=== PATIENT | female | born 2000 | race Hispanic/Latino ===

== ENCOUNTER 2022-02-06 11:18 | Emergency (ER) | payer OTHER | END 2022-02-06 14:05 | disposition home or self-care (01) | LOC: CSHERS 11:18 | DX: O9A.212 Injury, poisoning and certain other consequences of external causes complicating pregnancy, second trimester (principal); T14.8XXA Other injury of unspecified body region, initial encounter; Z3A.19 19 weeks gestation of pregnancy; V49.9XXA Car occupant (driver) (passenger) injured in unspecified traffic accident, initial encounter | CPT/HCPCS: 76856; 93976 ==

== ENCOUNTER 2022-04-01 09:39 | Day surgery (SDC) | payer SELFPAY ==
[2022-04-01] MEDS ORDERED: Promethazine HCl 25 MG/ML VIAL IM PRN (10:24)
[2022-04-01] MEDS ORDERED: Acetaminophen 500 MG TAB PO PRN (10:24)
[2022-04-01] MEDS ORDERED: hydrALAZINE 20 MG/ML VIAL SLOW IVP PRN (10:24)
[2022-04-01] MEDS ORDERED: Ondansetron PF 4 MG/2 ML Vial IVP PRN (10:24)
[2022-04-01] MEDS ORDERED: Lactated Ringer's 1,000 ML IV SCH (10:30)
[2022-04-01 10:38] LABS: Bilirubin Neg (Negative); Blood, Urine 10 (Negative); Clarity Cloudy (Clear); Glucose, Urine (Dipstick) Normal (Negative); Ketone, Urine Negative (Negative); Leukocyte 100 (Negative); Nitrite Negative (Negative); Protein, Urine (Dipstick) 30 mg/dl (Neg-Trace); Urobilinogen Normal mg/dL (Less than 2); pH, Urine 6.5 (5.0-9.0)
[2022-04-01 10:51] LABS: Urine Culture Reflex No No
[2022-04-01 10:53] LABS: Bacteria/HPF 1+ HPF (None Seen)
== END 2022-04-01 13:57 | disposition home or self-care (01) ==
LOC: CSHLD/OP 09:39
PROVIDERS: ATTEND Obstetrics & Gynecology
DX: O36.8120 Decreased fetal movements, second trimester, not applicable or unspecified (principal); O99.212 Obesity complicating pregnancy, second trimester; E66.9 Obesity, unspecified; Z67.91 Unspecified blood type, Rh negative; Z3A.27 27 weeks gestation of pregnancy
CPT/HCPCS: 76819; 81001

== ENCOUNTER 2022-05-18 12:21 | Day surgery (SDC) | payer SELFPAY ==
[2022-05-18 13:15] VITALS: BMI 40.6
[2022-05-18] MEDS ORDERED: hydrALAZINE 20 MG/ML VIAL SLOW IVP PRN (14:13)
[2022-05-18 14:39] LABS: Mean Corpuscular HGB CONC 33.9 g/dL (32.0-36.0); Mean Corpuscular Hemoglobin 30.2 pg (27.0-33.0); Mean Corpuscular Volume 88.9 fl (81.6-98.3); Mean Platelet Volume 12.1 fl (7.4-10.4); Platelet Count 292 10x3/uL (150-450); RBC Distribution Width 13.6 % (11.5-14.5); Red Blood Cell (RBC) Count 3.98 10x6/uL (3.90-5.03); White Blood Cell (WBC) Count 8.8 10x3/uL (3.5-10.5)
[2022-05-18 15:51] LABS: ALT (SGPT) 61 U/L (8-55); AST (SGOT) 42 U/L (5-34); Albumin 3.2 g/dL (3.5-5.0); Alkaline Phosphatase 106 U/L (40-110); Anion Gap 11 mmol/L (10-20); BUN (Urea Nitrogen) 9 mg/dL (7.0-18.7); Bilirubin, Total 0.2 mg/dL (0.2-1.2); Calc. Creatinine Clearance 237 mL/min (70-130); Calcium 8.9 mg/dL (7.8-10.44); Carbon Dioxide 23 mmol/L (22-29); Chloride 104 mmol/L (98-107); Estimated GFR 128; Globulin 3.5 g/dL (2.4-3.5); Glucose 76 mg/dL (70-105); Potassium 3.7 mmol/L (3.5-5.1); Protein, Total 6.7 g/dL (6.0-8.3); Sodium 134 mmol/L (136-145)
[2022-05-18 16:22] LABS: Creatinine, Urine 73.69 mg/dL (47-110)
[2022-05-19 01:21] LABS: Hep A IgM S/CO 0.38 S/CO (0-0.79); Hep C Index 0.12 S/CO (0-0.79)
[2022-05-19 01:22] LABS: Hep A IgM AB Non-Reactive (NonReactive); Hep B Surf Ag Non-Reactive S/CO (NonReactive); Hep C IgG Ab Non-Reactive (NonReactive); Hepatitis B Core IgM Abs Non-Reactive (NonReactive)
== END 2022-05-18 18:45 | disposition home or self-care (01) ==
LOC: CSHLD/OP 12:21
PROVIDERS: ATTEND Obstetrics & Gynecology
DX: O99.891 Other specified diseases and conditions complicating pregnancy (principal); R03.0 Elevated blood-pressure reading, without diagnosis of hypertension; O36.8330 Maternal care for abnormalities of the fetal heart rate or rhythm, third trimester, not applicable or unspecified; O24.419 Gestational diabetes mellitus in pregnancy, unspecified control; Z3A.34 34 weeks gestation of pregnancy; Z79.84 Long term (current) use of oral hypoglycemic drugs
CPT/HCPCS: 36415; 80053; 80074; 82570; 84156; 85027; 99283

== ENCOUNTER 2022-06-16 00:02 | Inpatient (IN) | payer MEDICAID, OTHER, SELFPAY ==
[2022-06-16 00:39] VITALS: BMI 37.5
[2022-06-16] MEDS ORDERED: Ondansetron PF 4 MG/2 ML Vial IVP PRN ×2 (01:00→13:42)
[2022-06-16] MEDS ORDERED: Acetaminophen 500 MG TAB PO PRN (01:00)
[2022-06-16] MEDS ORDERED: hydrALAZINE 20 MG/ML VIAL SLOW IVP PRN (01:00)
[2022-06-16] MEDS ORDERED: Lidocaine 1% (PF) 30 ML VIAL SC PRN (01:43)
[2022-06-16] MEDS ORDERED: Diphenoxylate HCl/Atropine Tablet PO PRN (01:43)
[2022-06-16] MEDS ORDERED: Misoprostol 200 MCG TAB PR PRN (01:43)
[2022-06-16] MEDS ORDERED: Carboprost 250 MCG/ML AMP IM PRN (01:43)
[2022-06-16] MEDS ORDERED: Ibuprofen 800 MG TAB PO PRN (01:43)
[2022-06-16] MEDS ORDERED: NS w/ Oxytocin 30 units 500 ML IV SCH ×2 (01:45)
[2022-06-16 02:04] LABS: Hemoglobin 12.6 g/dL (12.0-15.5); Mean Corpuscular HGB CONC 34.9 g/dL (32.0-36.0); Mean Corpuscular Hemoglobin 30.4 pg (27.0-33.0); Mean Platelet Volume 12.9 fl (7.4-10.4); Platelet Count 255 10x3/uL (150-450); RBC Distribution Width 14.3 % (11.5-14.5); Red Blood Cell (RBC) Count 4.15 10x6/uL (3.90-5.03); White Blood Cell (WBC) Count 11.4 10x3/uL (3.5-10.5)
[2022-06-16] MEDS: Lactated Ringer's 1,000 ML IV SCH ×3 (02:04→19:08)
[2022-06-16] MEDS: Misoprostol 100 MCG TAB VAG SCH ×5 (02:04→19:09)
[2022-06-16 02:13] LABS: SARS-CoV-2 NAA Rapid Test Not Detected (NotDetected)
[2022-06-16 02:26] LABS: HBSAg Index 0.14 S/CO (0-0.99); Hep B Surf Ag Non-Reactive S/CO (NonReactive)
[2022-06-16 02:27] LABS: Syphilis Antibody Nonreactive (Nonreactive); Syphilis Antibody Index 0.03 S/CO (<1.00 Non-Reactive)
[2022-06-16 02:29] LABS: Creatinine, Urine 65.89 mg/dL (47-110)
[2022-06-16 02:50] LABS: ALT (SGPT) 42 U/L (8-55); AST (SGOT) 30 U/L (5-34); Albumin 3.2 g/dL (3.5-5.0); Alkaline Phosphatase 142 U/L (40-110); Anion Gap 14 mmol/L (10-20); BUN (Urea Nitrogen) 12 mg/dL (7.0-18.7); Bilirubin, Total 0.2 mg/dL (0.2-1.2); Calc. Creatinine Clearance 211 mL/min (70-130); Calcium 9.5 mg/dL (7.8-10.44); Carbon Dioxide 21 mmol/L (22-29); Chloride 105 mmol/L (98-107); Estimated GFR 117; Globulin 3.5 g/dL (2.4-3.5); Glucose 99 mg/dL (70-105); Potassium 4.3 mmol/L (3.5-5.1); Protein, Total 6.7 g/dL (6.0-8.3); Sodium 136 mmol/L (136-145)
[2022-06-16] MEDS ORDERED: metFORMIN 500 MG TAB PO SCH (07:30)
[2022-06-16] MEDS ORDERED: Fentanyl 2 mcg/Bup 0.1% Cadd 100 ML ONE (12:51)
[2022-06-16] MEDS ORDERED: Moisturizing Cream (Eucerin) 113 GM JAR TOP PRN (13:42)
[2022-06-16] MEDS ORDERED: Naloxone HCl 0.4 mg/ml Vial IVP PRN ×2 (13:42)
[2022-06-16] MEDS ORDERED: diphenhydrAMINE 50 MG/ML VIAL IVP PRN (13:42)
[2022-06-16] MEDS ORDERED: Acetaminophen 325 MG TAB PO PRN (13:42)
[2022-06-16] MEDS ORDERED: Promethazine HCl 25 MG/ML VIAL IM PRN (13:42)
[2022-06-16] MEDS ORDERED: Lactated Ringer's 500 ML IV PRN (13:42)
[2022-06-16] MEDS ORDERED: ePHEDrine Sulfate 50 MG/10 ML VIAL SLOW IVP PRN (13:42)
[2022-06-16] MEDS ORDERED: Communication Order-Pharmacy FS SCH (13:45)
[2022-06-16] MEDS: Fentanyl 2 mcg/Bupivacaine 0.1% Cassette 100 ML EPIDURAL SCH (21:36)
[2022-06-16] MEDS ORDERED: Dextrose 5%-Lactated Ringers 1,000 ML IV SCH (23:00)
[2022-06-17] MEDS: Fentanyl 2 mcg/Bupivacaine 0.1% Cassette 100 ML EPIDURAL SCH (03:30)
[2022-06-17] MEDS ORDERED: Lidocaine 1% (PF) 30 ML VIAL ONE (06:48)
[2022-06-17] MEDS ORDERED: Methylergonovine 0.2 MG/ML VIAL ONE (07:28)
[2022-06-17] MEDS ORDERED: Bisacodyl 10 MG SUPP PR PRN (08:51)
[2022-06-17] MEDS ORDERED: hydrALAZINE 20 MG/ML VIAL SLOW IVP PRN (08:51)
[2022-06-17] MEDS ORDERED: Boostrix 0.5 ML (Tdap) VIAL (>/=7 yrs of age) IM ONE (08:51)
[2022-06-17] MEDS ORDERED: Lanolin Ointment 7 GM TUBE TOP PRN (08:51)
[2022-06-17] MEDS ORDERED: Milk Of Magnesia 30 ML UDCUP PO PRN (08:51)
[2022-06-17] MEDS: Docusate 100 MG CAP PO SCH ×2 (10:09→21:42)
[2022-06-17] MEDS: Prenatal Vitamin 1 TAB PO SCH (10:10)
[2022-06-17] MEDS: Ibuprofen 800 MG TAB PO SCH ×2 (13:37→21:41)
[2022-06-17] MEDS ORDERED: Ferrous Sulfate 325 MG TAB PO SCH (17:00)
[2022-06-18] MEDS: Ibuprofen 800 MG TAB PO SCH ×3 (04:28→22:00)
[2022-06-18] MEDS: Prenatal Vitamin 1 TAB PO SCH (08:47)
[2022-06-18] MEDS: Docusate 100 MG CAP PO SCH ×2 (08:47→21:59)
[2022-06-18] MEDS: Sertraline 100 MG TAB PO SCH (08:47)
[2022-06-18] MEDS: Acetaminophen 500 MG TAB PO SCH ×2 (08:49→15:29)
[2022-06-18] MEDS ORDERED: GENTAMICIN SULFATE IVPB SCH (15:30)
[2022-06-18] MEDS: Gentamicin 420 MG in Sodium Chloride 0.9% 100 ML IVPB SCH (16:12)
[2022-06-18 18:30] LABS: #Eosinphils 0.1 10x3/uL (0.0-0.5); #Monocytes 0.7 10x3/uL (0.0-1.1); #Neutrophils 10.6 10x3/uL (1.5-8.4); %Basophils 0.2 % (0.0-2.0); %Eosinophils 0.4 % (0.0-6.0); %Lymphocytes 18.3 % (18.0-47.0); %Neutrophils 75.5 % (40.0-75.0); Mean Corpuscular Hemoglobin 30.5 pg (27.0-33.0); Mean Corpuscular Volume 89.6 fl (81.6-98.3); Mean Platelet Volume 12.2 fl (7.4-10.4); Platelet Count 238 10x3/uL (150-450); RBC Distribution Width 14.9 % (11.5-14.5); Red Blood Cell (RBC) Count 3.94 10x6/uL (3.90-5.03); White Blood Cell (WBC) Count 14.1 10x3/uL (3.5-10.5)
[2022-06-18] MEDS: Acetaminophen 500 MG TAB PO PRN (20:50)
[2022-06-18] MEDS: Clindamycin/D5W 900 MG in Premix Bag 1 BAG IVPB SCH (21:58)
[2022-06-18] MEDS ORDERED: Clindamycin/D5W 900 MG in Premix Bag 1 BAG IVPB SCH (22:00)
[2022-06-18 22:48] LABS: Bilirubin Neg (Negative); Blood, Urine 250 (Negative); Clarity Slightly Cloudy (Clear); Glucose, Urine (Dipstick) Normal (Negative); Ketone, Urine Negative (Negative); Leukocyte 500 (Negative); Nitrite Negative (Negative); Protein, Urine (Dipstick) 100 mg/dl (Neg-Trace); Specific Gravity, Urine 1.015 (1.005-1.030); Urobilinogen Normal mg/dL (Less than 2)
[2022-06-18 23:02] LABS: Bacteria/HPF 1+ HPF (None Seen); RBC/HPF Greater than 50 HPF (0-3); Squamous Epithelial 0-3 HPF (0-3)
[2022-06-19] MEDS ORDERED: diphenhydrAMINE 25 MG CAP PO SCH (00:15)
[2022-06-19] MEDS ORDERED: Methocarbamol 500 MG TAB PO SCH (00:15)
[2022-06-19] MEDS: Clindamycin/D5W 900 MG in Premix Bag 1 BAG IVPB SCH ×2 (07:28→13:03)
[2022-06-19] MEDS: Ibuprofen 800 MG TAB PO SCH ×3 (07:29→22:39)
[2022-06-19] MEDS: Prenatal Vitamin 1 TAB PO SCH (09:30)
[2022-06-19] MEDS: Docusate 100 MG CAP PO SCH ×2 (09:30→22:45)
[2022-06-19] MEDS: Sertraline 100 MG TAB PO SCH (09:30)
[2022-06-19] MEDS: Acetaminophen 500 MG TAB PO PRN (13:03)
[2022-06-19] MEDS ORDERED: Sodium Chloride 0.9% 100 ML ONE (16:26)
[2022-06-19] MEDS: Gentamicin 420 MG in Sodium Chloride 0.9% 100 ML IVPB SCH (16:57)
[2022-06-20] MEDS: Ibuprofen 800 MG TAB PO SCH (05:06)
[2022-06-20 05:49] LABS: #Basophils 0.1 10x3/uL (0.0-0.2); #Eosinphils 0.3 10x3/uL (0.0-0.5); #Monocytes 0.9 10x3/uL (0.0-1.1); #Neutrophils 5.4 10x3/uL (1.5-8.4); %Basophils 0.5 % (0.0-2.0); %Lymphocytes 30.5 % (18.0-47.0); %Monocytes 9.3 % (0.0-10.0); %Neutrophils 55.9 % (40.0-75.0); Mean Corpuscular HGB CONC 32.5 g/dL (32.0-36.0); Mean Corpuscular Hemoglobin 30.4 pg (27.0-33.0); Mean Corpuscular Volume 93.4 fl (81.6-98.3); Mean Platelet Volume 11.8 fl (7.4-10.4); Platelet Count 243 10x3/uL (150-450); RBC Distribution Width 15.3 % (11.5-14.5); Red Blood Cell (RBC) Count 3.62 10x6/uL (3.90-5.03); White Blood Cell (WBC) Count 9.7 10x3/uL (3.5-10.5)
[2022-06-20] MEDS: Docusate 100 MG CAP PO SCH (08:53)
[2022-06-20] MEDS: Prenatal Vitamin 1 TAB PO SCH (08:53)
[2022-06-20] MEDS: Sertraline 100 MG TAB PO SCH (08:53)
[2022-06-20 12:36] VITALS: BP 126/65; TEMP 98.2
== END 2022-06-20 14:23 | disposition home or self-care (01) | DRG 806 ==
LOC: CSHLD 00:02 → CSHPP 06-17 09:20
PROVIDERS: ADMIT Student in an Organized Health Care Education/Training Program; ATTEND Student in an Organized Health Care Education/Training Program
PROC: 3E0P7VZ Introduction of Hormone into Female Reproductive, Via Natural or Artificial Opening (ICD-10-PCS; 2022-06-16)
PROC: 0U7C7ZZ Dilation of Cervix, Via Natural or Artificial Opening (ICD-10-PCS; 2022-06-16)
PROC: 10H07YZ Insertion of Other Device into Products of Conception, Via Natural or Artificial Opening (ICD-10-PCS; 2022-06-16)
PROC: 10E0XZZ Delivery of Products of Conception, External Approach (ICD-10-PCS; principal; 2022-06-17)
PROC: 0KQM0ZZ Repair Perineum Muscle, Open Approach (ICD-10-PCS; 2022-06-17)
DX: O24.425 Gestational diabetes mellitus in childbirth, controlled by oral hypoglycemic drugs (principal); O10.92 Unspecified pre-existing hypertension complicating childbirth; Z37.0 Single live birth; O86.4 Pyrexia of unknown origin following delivery; O26.893 Other specified pregnancy related conditions, third trimester; Z67.11 Type A blood, Rh negative; Z20.822 Contact with and (suspected) exposure to COVID-19; Z79.84 Long term (current) use of oral hypoglycemic drugs; F32.9 Major depressive disorder, single episode, unspecified; O99.344 Other mental disorders complicating childbirth; Z3A.38 38 weeks gestation of pregnancy; Z87.440 Personal history of urinary (tract) infections; Z79.82 Long term (current) use of aspirin; Z79.899 Other long term (current) drug therapy; O76 Abnormality in fetal heart rate and rhythm complicating labor and delivery; O42.02 Full-term premature rupture of membranes, onset of labor within 24 hours of rupture; O70.1 Second degree perineal laceration during delivery; E66.9 Obesity, unspecified; O99.02 Anemia complicating childbirth
CPT/HCPCS: 36415; 36416; 51702; 80053; 81003; 81015; 82570; 84145; 84156; 85025; 85027; 85461; 86780; 86850; 86900; 86901; 87086; 87340; 87804; 90384; 96372; J1580; J2001; J2210; J2405; J2590; J3490; J7120; U0002